=== PATIENT | female | born 1985 | race Two or more races ===

== ENCOUNTER 2016-10-26 19:10 | Emergency (ER) | payer MEDICAID ==
[~2016-10-26] VITALS: Ht 154.9 cm; Wt 76.7 kg
[2016-10-26 19:51] VITALS: BP 156/121
--- NOTE | 2016-10-26 19:57 | Emergency Room Report ---
History of Present Illness General Chief Complaint: Hypertension Source: Patient Present Illness HPI 31-year-old female presents to emergency Department complaining of elevated blood pressure x3 days in addition to intermittent slowly progressive headaches which have become more persistent. Patient reports history of high blood pressure in the past for which he previously was taking oral medications for that she does not remember the name of. Patient states that approximately 3 years ago her new doctor told her that she did not need to take medications any longer. She also reports increase of stress over the course of the past week which may have contributed to elevation of blood pressure. Patient denies nausea or vomiting patient denies visual changes or sudden onset of headaches. Patient states that headaches have usually been treated with Motrin. denies dysuria, hematuria, frequency or urgency. Denies CP, Palpitations, LOC, AMS, dizziness, Changes in Vision, Sensation, paresthesias, or a sudden severe headache. Allergies: Coded Allergies: No Known Allergies (Unverified , 10/26/16) Patient History Past Medical History: see triage record Past Surgical History: none Pertinent Family History: none Last Menstrual Period: 10/22/16 Now: No : 3 Para: 3 Immunizations: UTD Reviewed Nursing Documentation: PMH: Agreed, PSxH: Agreed Nursing Documentation-PMH Hx Hypertension: Yes - HIGH CHOLESTEROL Review of Systems All Other Systems: negative except mentioned in HPI Physical Exam Vital Signs Date Time Temp Pulse Resp B/P Pulse Ox O2 Delivery O2 Flow Rate FiO2 10/26/16 19:47 98.1 103 16 156/121 96 Room Air Sp02 EP Interpretation: reviewed, normal General Appearance: no apparent distress, alert, GCS 15, non-toxic Head: normocephalic, atraumatic Eyes: bilateral eye EOMI, bilateral eye PERRL, bilateral eye normal inspection ENT: hearing grossly normal, normal pharynx, no angioedema, normal voice Neck: full range of motion, no meningismus, no bony tend, supple/symm/no masses Respiratory: chest non-tender, lungs clear, normal breath sounds, speaking full sentences Cardiovascular #1: regular rate, rhythm, no edema Rectal: deferred Genitourinary: normal inspection, no CVA tenderness Musculoskeletal: back normal, gait/station normal, normal range of motion, non- tender, no calf tenderness Neurologic: alert, oriented x3, responsive, motor strength/tone normal, sensory intact, cerebellar normal, normal gait, speech normal, no pronator, other - equal signal circuit designer strength bilaterally Psychiatric: judgement/insight normal, memory normal, mood/affect normal, no suicidal/homicidal ideation Skin: normal color, no rash, warm/dry, well hydrated Lymphatic: no adenopathy Medical Decision Making PA Attestation Dr. Mancini is my supervising Physician whom patient management has been discussed with. Diagnostic Impression: Primary Impression: Elevated blood pressure reading with diagnosis of hypertension Additional Impression: Head ache Qualified Codes: R51 - Headache ER Course 31-year-old female presents to emergency Department complaining of elevated blood pressure x3 days in addition to intermittent headaches which have become more pleasant. Patient reports history of high blood pressure in the past for which he previously was taking oral medications for that she does not remember the name of. Patient states that approximately 3 years ago her new doctor told her that she did not need to take medications any longer. She also reports increase of stress over the course of the past week which may have contributed to elevation of blood pressure. Patient denies nausea or vomiting patient denies visual changes or sudden onset of headaches Described as Ddx considered but are not limited to migraine, SAH, Psedudo motor Cerebri, Mass lesion, Cluster VELASCO, Tension VELASCO, Post lumbar puncture VELASCO. Vital signs: are WNL, pt. is afebrile H&PE are most consistent with migraine headache ORDERS: - none required at this time, dx is clinical. ED INTERVENTIONS: - Tylenol -IM Reglan -HCTZ PO 25mg - Hanna PO DISCHARGE: At this time pt. is stable for d/c to home. Will provide printed patient care instructions, and any necessary prescriptions. Care plan and follow up instructions have been discussed with the patient prior to discharge. Last Vital Signs Date Time Temp Pulse Resp B/P Pulse Ox O2 Delivery O2 Flow Rate FiO2 10/26/16 19:51 98.1 16 156/121 96 Room Air 10/26/16 19:51 103 Disposition: HOME, SELF-CARE Condition: Stable Scripts Acetaminophen* (TYLENOL EXTRA STRENGTH*) 500 Mg Tablet 500 MG ORAL Q6H, #30 TAB 0 Refills Prov: Corrine Fried P.A. 10/26/16 Hydrochlorothiazide* (HYDROCHLOROTHIAZIDE*) 12.5 Mg Capsule 12.5 MG ORAL DAILY for 14 Days, #20 CAP Prov: Corrine Fried 10/26/16 Patient Instructions: High Blood Pressure (Hypertension) Additional Instructions: Take medications as directed. Follow up with PCP in 3-5 days Elevated BP in ED was 156/121 Return sooner to ED if new symptoms occur, or current symptoms become worse. - Please note that this Emergency Department Report was dictated using [employer] patroller technology software, occasionally this can lead to erroneous entry secondary to interpretation by the dictation equipment. Corrine Fried Oct 26, 2016 19:57
[2016-10-26] MEDS ORDERED: HYDROCHLOROTH12.5 M2 ORAL (20:31)
[2016-10-26] MEDS ORDERED: TYLENOL EXTRA500 MG ORAL (20:32)
[2016-10-26] MEDS ORDERED: Norco 7.5mg/325mg tab ORAL ONE (21:15)
[2016-10-26] MEDS ORDERED: Metoclopramide 10mg/2ml Inj IM ONE (21:45)
[2016-10-26 21:59] VITALS: BP 151/96
[2016-11-15] MEDS ORDERED: HYDROCHLOROTH12.5 M2 ORAL (13:50)
== END 2016-10-26 21:59 | disposition home or self-care (01) ==
LOC: EMR 21:29
DX: R03.0 Elevated blood-pressure reading, without diagnosis of hypertension (principal); E78.00 Pure hypercholesterolemia, unspecified
CPT/HCPCS: 96372; 99284; J2765

== ENCOUNTER 2017-06-29 18:41 | Emergency (ER) | payer MEDICAID, OTHER ==
[~2017-06-29] VITALS: Ht 154.9 cm; Wt 76.2 kg
[~2017-06-29 18:41] MED LIST: HYDROCHLOROTH12.5 M2 ORAL; TYLENOL EXTRA500 MG ORAL
[2017-06-29 19:10] VITALS: BP 152/108
[2017-06-29 19:59] LABS: APPEARANCE,URINE CLEAR; KETONES,URINE NEGATIVE (NEGATIVE); LEUKOCYTE ESTERASE ,URINE 1+ (NEGATIVE); NITRITE,URINE NEGATIVE (NEGATIVE); PH,URINE 6 (4.5-8.0); PROTEIN,URINE 1+ (NEGATIVE); UROBILINOGEN,URINE NORMAL MG/DL (0.0-1.0)
[2017-06-29 20:12] LABS: BACTERIA,URINE FEW /HPF; SQUAMOUS EPITHELIAL CELL,UR FEW /LPF (NONE/OCC); WBC,URINE 0-2 /HPF (0 - 2)
[2017-06-29] MEDS ORDERED: Ketorolac 30mg Inj IM ONE (20:15)
[2017-06-29] MEDS ORDERED: IBUPROFEN600 MG ORAL (20:29)
[2017-06-29] MEDS ORDERED: ZOFRAN4 M3 ORAL (20:29)
[2017-06-29 20:40] VITALS: BP 144/92
[2017-06-29 20:41] VITALS: BP 144/92
--- NOTE | 2017-06-29 21:51 | Emergency Room Report ---
History of Present Illness General Chief Complaint: General Complaint Source: Patient Present Illness HPI The patient is a 31-year-old female presenting for nausea, subjective fevers, chills after receiving a flu shot and hepatitis A vaccine 3 days ago. She states the symptoms began 2 days ago. She denies any recent travel or known sick contacts. she denies any pain. She denies any other symptoms including abd pain, cough, SOB, dysuria, vaginal DC Allergies: Coded Allergies: No Known Allergies (Unverified , 10/26/16) Patient History Past Medical History: see triage record Pertinent Family History: none Last Menstrual Period: one week ago Reviewed Nursing Documentation: PMH: Agreed, PSxH: Agreed Nursing Documentation-PMH Past Medical History: No History, Except For Hx Hypertension: Yes - HIGH CHOLESTEROL Review of Systems All Other Systems: negative except mentioned in HPI Physical Exam Vital Signs Date Time Temp Pulse Resp B/P (MAP) Pulse Ox O2 Delivery O2 Flow Rate FiO2 06/29/17 18:54 98.2 110 18 152/108 99 Room Air Sp02 EP Interpretation: reviewed, normal General Appearance: no apparent distress, alert, GCS 15, non-toxic Head: normocephalic, atraumatic Eyes: bilateral eye normal inspection, bilateral eye PERRL ENT: hearing grossly normal, normal pharynx, no angioedema, normal voice, uvula midline Neck: full range of motion, supple/symm/no masses Respiratory: chest non-tender, lungs clear, normal breath sounds, speaking full sentences Cardiovascular #1: regular rate, rhythm, no edema Musculoskeletal: back normal, gait/station normal, normal range of motion, non- tender Neurologic: alert, oriented x3, responsive, motor strength/tone normal, sensory intact, speech normal Psychiatric: judgement/insight normal, memory normal, mood/affect normal, no suicidal/homicidal ideation Skin: normal color, no rash, warm/dry, well hydrated Lymphatic: no adenopathy Medical Decision Making PA Attestation Dr. Augustine is my supervising physician. Patient management was discussed with my supervising physician Diagnostic Impression: Primary Impression: Viral syndrome ER Course The patient is a 31-year-old female presenting for nausea, subjective fevers, chills after receiving a flu shot and hepatitis A vaccine Differential diagnoses considered include but not limited to drug allergy, appendicitis, , UTI, viral syndrome, among others PE: vitals WNL. NAD RRR Lungs CTA bilat Abdomen: Normal appearance. Non distended. No ecchymosis. Normal BS. Non TTP. No McBurney point tenderness. No guarding. No CVA tenderness UA:Not consistent with infection The patient is given Toradol and Zofran and feels better. She'll be discharged home with prescription for Motrin and Zofran. ER precautions given Laboratory Tests Test 06/29/17 19:25 Urine Color Pale yellow Urine Appearance Clear Urine pH 6 (4.5-8.0) Urine Specific [place] 1.020 (1.005-1.035) Urine Protein 1+ (NEGATIVE) H Urine Glucose (UA) 1+ (NEGATIVE) H Urine Ketones Negative (NEGATIVE) Urine Occult Blood 4+ (NEGATIVE) H Urine Nitrite Negative (NEGATIVE) Urine Bilirubin Negative (NEGATIVE) Urine Urobilinogen Normal MG/DL (0.0-1.0) Urine Leukocyte Esterase 1+ (NEGATIVE) H Urine RBC 2-4 /HPF (0 - 2) H Urine WBC 0-2 /HPF (0 - 2) Urine Squamous Epithelial Cells Few /LPF (NONE/OCC) Urine Bacteria Few /HPF (NONE) Urine HCG, Qualitative Negative Lab Results Impression Not consistent with infection Last Vital Signs Date Time Temp Pulse Resp B/P (MAP) Pulse Ox O2 Delivery O2 Flow Rate FiO2 06/29/17 19:10 98.2 110 18 152/108 99 Room Air Status: improved Disposition: HOME, SELF-CARE Condition: Improved Scripts Ondansetron* (ZOFRAN*) 4 Mg Tablet 4 MG ORAL Q6H Y for Nausea & Vomiting, #10 TAB Prov: TERZIAN,FIDEL P.A. 06/29/17 Ibuprofen* (MOTRIN*) 600 Mg Tablet 600 MG ORAL Q8H Y for For Pain, #30 TAB 0 Refills Prov: TERZIAN,FIDEL P.A. 06/29/17 Referrals: [facility],REFERRING (PCP) Patient Instructions: Viral Respiratory Infection Additional Instructions: I discussed my findings with the patient. All questions and concerns have been answered. Treatment and medication compliance have been addressed. I advised the patient that they need to follow up with PMD in 3-5 days. Return to ED if pain remains or worsens, cough worsens or remains, you notice blood in your sputum, you notice wheezing, you experience a fever, or if needed for any reason. Patient verbalized understanding of discharge instructions. FIDEL EDWARDS Jun 29, 2017 21:51
== END 2017-06-29 21:15 | disposition home or self-care (01) ==
LOC: EMR 21:02
DX: B34.9 Viral infection, unspecified (principal); I10 Essential (primary) hypertension
CPT/HCPCS: 81003; 81025; 96372; 99284; J1885